=== PATIENT | male | born 1990 | race Caucasian/White ===

== ENCOUNTER 2023-01-06 10:54 | Emergency (ER) | payer OTHER, SELFPAY ==
[2023-01-06 11:12] VITALS: BP 119/72; PULSE 84; RESP 18; TEMP 36.3; O2SAT 99; BMI 25.6
--- NOTE | 2023-01-06 11:13 | ED_ITS ---
HPI - General Adult General Chief complaint: Urogenital-Male Stated complaint: Genital bleeding, abdominal pain Time Seen by Provider: 01/06/23 11:38 Source: patient Mode of arrival: ambulatory Limitations: no limitations History of Present Illness HPI narrative: Patient is a 32-year-old male presents emergency department for evaluation of bloody urethral discharge. He reports that upon awakening this morning he noticed blood on the bed sheets. When asked he does endorse a mild burning sensation at the urethral meatus but does not experience dysuria. He denies concern for sexually transmitted infection, reports last sexual intercourse 4 months ago, he states he has not had STI testing since then. He denies fevers, chills, nausea, vomiting, abdominal pain, back/flank pain, urinary retention, hematochezia, melena, testicular pain or swelling, lesions or sores to the genitals. Related Data Allergies Allergy/AdvReac Type Severity Reaction Status Date / Time No Known Allergies Allergy Verified 01/06/23 11:12 Review of Systems 2 Review of Systems: Yes all other systems are reviewed and are negative [facility] Past Medical History Attestation statement: The following information was validated with the patient. Source: old records reviewed Social History Social History Advance Directives: No Advance Directives Information Provided: Yes Physical Exam ED Vital Signs: Vital Signs - 24 hr 01/06/23 11:12 Temperature 97.3 F Pulse Rate 84 Respiratory Rate 18 Blood Pressure 119/72 Pulse Oximetry 99 Oxygen Delivery Method Room Air BMI result Body Mass Index 25.6 Appearance: Alert.?Oriented to person, place and time. No acute distress.?Normal affect. Neck: Normal inspection.? Neck supple.?? CVS: Heart sounds normal. Normal heart rate and rhythm.? Pulses normal.?? Respiratory: No respiratory distress.? Lung sounds clear to auscultation bilaterally?? Abdomen: Soft and non-tender. Normoactive bowel sounds. Genital: Performed with jacqueline ED elevator technician. Normal appearing genitalia, no erythema, edema, lesions, active discharge. Skin: Skin warm and dry.? Normal skin color.? Neuro: Moves all extremities spontaneously. Sensation intact bilaterally. . Ambulates with normal steady gait. Course Course Course Narrative: RME- 32 year old male presents for evaluation of bloody urethral discharge that he first noticed this morning. Some burning associated but not with urination. Denies concern for STD. Plan for labs, UA Reevaluation(s) Reevaluation #1: Reviewed these findings with patient, he declines interest in prophylactic treatment for STI due to low concern, advised she will be contacted with any positive results. Urinalysis is without signs of infection or microscopic hematuria. CBC and BMP are overall unremarkable. Discussed possible trauma during sleep that may presented and in the scant amount of bleeding that had demonstrated with a photo present on bed sheets. Advised outpatient follow-up with PCP for further concerns. Discussed worrisome signs and symptoms that would warrant re-evaluation emergency department. All questions answered. Stable for discharge. Time: 12:48 Medical Decision Making Medical Decision Making [facility] Narrative: Patient is a 32-year-old male presenting to emergency department for evaluation of bloody urethral discharge as per HPI. He is overall well-appearing, vital signs are stable, no tachycardia, examination of the genitalia is benign, no active bleeding is noted, abdominal examination is benign, no CVA tenderness. Discussed with patient plan of care, will obtain urinalysis, CT/NG, in addition to CBC and BMP to assess for anemia, ODILIA. Reviewed possibility of nephrolithiasis/ureteral calculi as potential etiology for blood, though he is currently asymptomatic. Also discussed possibility of urinary tract infection/STI. Differential Diagnosis Differential Diagnoses: The differential diagnosis associated with the presentation includes (As noted above) Lab Data [facility] Lab Attestation statement: I reviewed the patient's lab results. CBC is without leukocytosis or anemia. BMP without electrolyte abnormality or ODILIA. CT/NG is pending. Urinalysis is without evidence of infection or microscopic hematuria. 01/06/23 11:39 01/06/23 11:39 Labs: Lab Results 01/06/23 01/06/23 Range/Units 11:39 12:30 WBC 8.1 (4.8-10.8) X10*3/uL RBC 5.08 (4.60-5.80) X10*6/uL Hgb 14.7 (14.0-18.0) g/dl Hct 43.5 (42.0-52.0) % MCV 85.6 (80.0-98.0) fL MCH 28.9 (27.0-33.0) pg MCHC 33.8 (31.0-36.0) g/dl RDW 12.2 (11.0-16.0) % Plt Count 198 (160-400) X10*3/uL MPV 8.6 L (9.4-12.4) fL Immature Gran % (Auto) 0.6 H (0.0-0.4) % Neut % (Auto) 77.6 H (45-73) % Lymph % (Auto) 13.9 L (20-40) % Bates % (Auto) 7.1 (2-11) % Eos % (Auto) 0.6 (0-4) % Baso % (Auto) 0.2 (0-2) % Lymph # (Auto) 1.1 L (1.2-4.9) X10*3/uL Bates # (Auto) 0.6 (0.1-1.2) X10*3/uL Eos # (Auto) 0.1 (0.0-0.4) X10*3/uL Baso # (Auto) 0.0 (0.0-0.2) X10*3/uL Abs Immat Gran (auto) 0.05 H (0.00-0.03) X10*3/uL Absolute Neuts (auto) 6.3 (2.0-8.3) x10*3/uL Absolute Nucleated RBC 0.000 (0.0-0.012) X10*3/uL Nucleated RBC % (auto) 0.0 (0.0-0.2) /100WBC Sodium 138 (135-145) mmol/L Potassium 4.3 (3.3-5.1) mmol/L Chloride 105 (96-108) mmol/L Carbon Dioxide 26 (22-29) mmol/L Anion Gap 11 L (12-20) BUN 14 (9-16) mg/dL Creatinine 0.86 (0.5-1.4) mg/dL Estim Creat Clear Calc 147.3 Estimated GFR > 60 Random Glucose 142 H (60-115) mg/dL Calcium 9.0 (8.4-10.2) mg/dL Urine Color Yellow Urine Appearance Clear Urine pH 7.0 (5.0-9.0) Ur Specific [place] <= 1.005 (1.005-1.025) Urine Protein Negative (Neg-Trace) mg/dL Urine Glucose (UA) Negative (Negative) mg/dL Urine Ketones Negative (Negative) mg/dL Urine Blood Negative (Negative) Urine Nitrite Negative (Negative) Ur Leukocyte Esterase Negative (Negative) Urine RBC 0-2 (0-2) /HPF Urine WBC 0-5 (0-5) /HPF Ur Squamous Epith Cells 0-2 (0-2) /HPF Urine Bacteria None Seen (None Seen) Hyaline Casts 0-2 (0-2) /LPF Tests considered The following testing was considered but not selected: Considered CT AP for possible nephrolithiasis, examination benign, urinalysis unremarkable, no indication for imaging at this time. Discharge Plan Discharge Clinical Impression: Bloody urethral discharge in male Patient Disposition: Home, Self-Care Additional Instructions: as discussed, please contact your primary care provider to arrange for a follow-up visit for further symptoms. You may return back to emergency department any new or worsening symptoms or concerns. Should her testing for STI result as positive you will receive a contacted by phone. Referrals: Physician,Shadi J [Primary Care Provider] -
[2023-01-06 11:42] LABS: MANUAL DIFF FLAG NO
[2023-01-06 11:45] LABS: Basophils Percent Auto 0.2 % (0-2); Eosinophils Absolute Auto 0.1 X10*3/uL (0.0-0.4); Eosinophils Percent Auto 0.6 % (0-4); Hematocrit 43.5 % (42.0-52.0); Hemoglobin 14.7 g/dl (14.0-18.0); Imm Gran Abs Auto 0.05 X10*3/uL (0.00-0.03); Imm Gran Pct Auto 0.6 % (0.0-0.4); Lymphocytes Absolute Auto 1.1 X10*3/uL (1.2-4.9); Lymphocytes Percent Auto 13.9 % (20-40); Mean Corpuscular HGB Conc 33.8 g/dl (31.0-36.0); Mean Corpuscular Hemoglobin 28.9 pg (27.0-33.0); Mean Corpuscular Volume 85.6 fL (80.0-98.0); Mean Platelet Volume 8.6 fL (9.4-12.4); Monocytes Absolute Auto 0.6 X10*3/uL (0.1-1.2); Monocytes Percent Auto 7.1 % (2-11); Neutrophils Absolute Auto 6.3 x10*3/uL (2.0-8.3); Neutrophils Percent Auto 77.6 % (45-73); Platelet Count 198 X10*3/uL (160-400); Red Blood Count 5.08 X10*6/uL (4.60-5.80); Red Cell Distribution Width 12.2 % (11.0-16.0); White Blood Count 8.1 X10*3/uL (4.8-10.8)
[2023-01-06 11:58] LABS: Anion Gap 11 (12-20); Blood Urea Nitrogen 14 mg/dL (9-16); Carbon Dioxide 26 mmol/L (22-29); Chloride 105 mmol/L (96-108); Creatinine Clr Calc Pharmacy 147.3; Estimated Glomerular Filt Rate > 60; Glucose Random 142 mg/dL (60-115); Potassium 4.3 mmol/L (3.3-5.1); Sodium 138 mmol/L (135-145)
[2023-01-06 12:36] LABS: Appearance Urine Clear; Color Urine Yellow; Glucose Urine UA Negative (Negative); Leukocyte Esterase Urine Negative (Negative); Nitrite Urine Negative (Negative); Specific Gravity - Urine <= 1.005 (1.005-1.025); Urine Blood Negative (Negative); Urine Ketones Negative (Negative); Urine Protein Negative (Neg-Trace)
[2023-01-06 12:42] LABS: Bacteria Urine None Seen (None Seen); Hyaline Casts Urine 0-2 /LPF (0-2); RBC Urine 0-2 /HPF (0-2); Squamous Epithelial Cell Urine 0-2 /HPF (0-2); WBC Urine 0-5 /HPF (0-5)
[2023-01-06 15:14] LABS: CT PCR NOT DETECTED (Not Detect.); NG PCR NOT DETECTED (Not Detect.)
== END 2023-01-06 12:55 | disposition home or self-care (01) ==
PROVIDERS: Physician Assistant; Emergency Provider Emergency Medicine Emergency Medical Services
DX: R36.1 Hematospermia (principal)
CPT/HCPCS: 0353U; 36415; 80048; 81001; 85025; 99283